=== PATIENT | female | born 1995 | race Caucasian/White ===

== ENCOUNTER 2016-04-17 09:33 | Emergency (ER) | payer MEDICAID ==
[~2016-04-17 09:33] MED LIST: AMOXICILLIN875 MG PO; ATARAX50 MG PO; BACTRIM DS 8001 TAB PO; BIRTH CONTROL PO; CIPRO 250MG TA250 MG PO; CIPRO 500MG TA500 MG PO; ED PERCOCE6 TAB/BOTT PO; ED ZOFRAN4 TAB/BOTT PO; FLOMAX0.4 MG PO; GOOD NEIGHBOR PHAR2% VG; HYDROCORT CREAM1% TP; IBU600 MG PO; KETOROLAC TROME10 MG PO; NORCO 325 MG-51 TAB PO; PERCOCET 325 MG1 TA2 PO; RECLIPSEN 0.151 TAB PO; ZOFRAN ODT8 MG PO; ZYRTEC10 MG PO
[2016-04-17 09:36] VITALS: BP 158/94
[2016-04-17] MEDS ORDERED: AMOXICILLIN875 MG PO (10:21)
[2016-04-17] MEDS ORDERED: TESSALON PERLE100 M1 PO (10:21)
[2016-04-17] MEDS ORDERED: TUSS PO (10:21)
== END 2016-04-17 10:26 | disposition home or self-care (01) ==
LOC: ED 09:33
DX: J30.9 Allergic rhinitis, unspecified (principal); R05 Cough; H92.03 Otalgia, bilateral; F17.210 Nicotine dependence, cigarettes, uncomplicated

== ENCOUNTER 2016-11-22 10:26 | Emergency (ER) | payer MEDICAID ==
[~2016-11-22] VITALS: Ht 172.7 cm; Wt 145.5 kg
[~2016-11-22 10:26] MED LIST changes: +TESSALON PERLE100 M1 PO; +TUSS PO
[2016-11-22] MEDS ORDERED: AMOXIL500 M1 PO (12:10)
[2016-11-22 12:23] VITALS: BP 128/75
== END 2016-11-22 12:24 | disposition home or self-care (01) ==
LOC: ED 10:26
DX: S93.602A Unspecified sprain of left foot, initial encounter (principal); X50.1XXA Overexertion from prolonged static or awkward postures, initial encounter; J03.90 Acute tonsillitis, unspecified; F17.210 Nicotine dependence, cigarettes, uncomplicated; Y92.480 Sidewalk as the place of occurrence of the external cause

== ENCOUNTER 2017-01-22 13:14 | Emergency (ER) | payer OTHER, MEDICAID ==
[~2017-01-22] VITALS: Ht 172.7 cm; Wt 145.5 kg
[~2017-01-22 13:14] MED LIST changes: +AMOXIL500 M1 PO
[2017-01-22] MEDS ORDERED: KETOROLAC10 MG PO (16:32)
[2017-01-22 16:41] VITALS: BP 96/50
== END 2017-01-22 16:52 | disposition home or self-care (01) ==
LOC: ED 13:14
DX: S20.212A Contusion of left front wall of thorax, initial encounter (principal); S30.0XXA Contusion of lower back and pelvis, initial encounter; S20.222A Contusion of left back wall of thorax, initial encounter; S20.221A Contusion of right back wall of thorax, initial encounter; V48.5XXA Car driver injured in noncollision transport accident in traffic accident, initial encounter; Y92.488 Other paved roadways as the place of occurrence of the external cause; R51 Headache; S20.312A Abrasion of left front wall of thorax, initial encounter
CPT/HCPCS: J1885

== ENCOUNTER 2017-07-10 11:00 | Outpatient (RCR) | payer MEDICAID ==
[~2017-07-10 11:00] MED LIST changes: +KETOROLAC10 MG PO
== END 2017-07-10 11:30 | disposition home or self-care (01) ==
LOC: PT 11:00
DX: M51.36 Other intervertebral disc degeneration, lumbar region (principal)

== ENCOUNTER 2018-02-18 21:48 | Emergency (ER) | payer MEDICAID ==
[~2018-02-18] VITALS: Ht 172.7 cm; Wt 154.5 kg
[2018-02-18 22:00] VITALS: BP 136/66
[2018-02-18] MEDS ORDERED: MIRENA52 MG IU (22:04)
[2018-02-18] MEDS ORDERED: VENLAFAXINE H37.5 M4 PO (22:04)
[2018-02-18] MEDS ORDERED: CETIRIZINE HCL10 MG PO (22:04)
== END 2018-02-18 22:40 | disposition home or self-care (01) ==
LOC: ED 21:48
DX: H10.9 Unspecified conjunctivitis (principal); F32.9 Major depressive disorder, single episode, unspecified

== ENCOUNTER → 2018-02-28 | Outpatient (CLI) | payer MEDICAID ==
[2018-02-18 22:00] VITALS: BP 136/66
[~2018-02-28] MED LIST changes: +CETIRIZINE HCL10 MG PO; +MIRENA52 MG IU; +VENLAFAXINE H37.5 M4 PO
== END ==
LOC: RAD 13:32
DX: M79.672 Pain in left foot (principal)

== ENCOUNTER → 2018-03-03 | Outpatient (CLI) | payer MEDICAID ==
[2018-02-18 22:00] VITALS: BP 136/66
[2018-03-03 11:36] LABS: EOS # 0.5 (0.04-0.40); HEMATOCRIT 41.3 % (37.0-47.0); HEMOGLOBIN 13.7 g/dL (12.5-16.0); LYMPH# 2.3 (1.50-4.00); MEAN CELL VOLUME 85 fl (78-100); MEAN CORPUSCULAR HEMOGLOBIN 28 pg (27-31); MEAN CORPUSCULAR HGB CONC 33 g/dL (33-37); MEAN PLATELET VOLUME 8.6 fl (7.4-10.4); MONO # 0.7 (0.20-0.80); NEU # 8.2 (1.40-6.50); PLATELET COUNT 304 K/mm3 (130-400); RED BLOOD COUNT 4.88 M/mm3 (4.10-5.30); RED CELL DISTRIBUTION WIDTH 13.2 % (11.5-14.5); WHITE BLOOD COUNT 11.7 K/mm3 (4.8-10.8)
[2018-03-03 12:29] LABS: CALCIUM 9.3 mg/dL (8.4-10.2); TOTAL BILIRUBIN 0.5 mg/dL (0.2-1.3); TOTAL PROTEIN 7.1 g/dL (6.3-8.2)
== END ==
LOC: LAB 11:08
PROVIDERS: Physician Assistant
DX: F41.9 Anxiety disorder, unspecified (principal); F32.9 Major depressive disorder, single episode, unspecified; M54.9 Dorsalgia, unspecified; E66.01 Morbid (severe) obesity due to excess calories; R53.83 Other fatigue; Z83.49 Family history of other endocrine, nutritional and metabolic diseases

== ENCOUNTER 2018-07-14 20:45 | Emergency (ER) | payer MEDICAID ==
[~2018-07-14] VITALS: Ht 172.7 cm; Wt 154.5 kg
[2018-07-14 21:10] VITALS: BP 165/82
[2018-07-14] MEDS ORDERED: BACTRIM DS TAB1 EACH PO (21:59)
== END 2018-07-14 22:06 | disposition home or self-care (01) ==
LOC: ED 20:45
DX: L02.412 Cutaneous abscess of left axilla (principal); F32.9 Major depressive disorder, single episode, unspecified; F17.210 Nicotine dependence, cigarettes, uncomplicated; Z87.442 Personal history of urinary calculi; Z90.89 Acquired absence of other organs

== ENCOUNTER → 2018-08-25 | Outpatient (CLI) | payer MEDICAID ==
[~2018-08-25] MED LIST changes: +BACTRIM DS TAB1 EACH PO
[2018-08-25 15:53] LABS: TOTAL PROTEIN 7.1 g/dL (6.4-8.3)
[2018-08-25 15:55] LABS: TOTAL BILIRUBIN 0.3 mg/dL (0.2-1.2)
[2018-08-25 16:02] LABS: ALBUMIN 3.6 g/dL (3.5-5.0); CALCIUM 8.8 mg/dL (8.3-10.5); POTASSIUM 3.8 mmol/L (3.5-5.1)
== END ==
LOC: LAB 15:13
PROVIDERS: Nurse Practitioner
DX: N92.6 Irregular menstruation, unspecified (principal); R60.0 Localized edema; R73.9 Hyperglycemia, unspecified

== ENCOUNTER → 2018-09-12 | Outpatient (CLI) | payer MEDICAID | LOC: LAB 08:37 | DX: N91.2 Amenorrhea, unspecified (principal); N92.6 Irregular menstruation, unspecified ==

== ENCOUNTER → 2019-10-19 | Outpatient (CLI) | payer MEDICAID ==
[2018-11-09 23:26] VITALS: BP 145/87
[~2019-10-19] MED LIST changes: +CYCLOBENZAPRINE10 M1 PO
== END ==
LOC: LAB 11:44
DX: M79.672 Pain in left foot (principal)

== ENCOUNTER → 2019-11-29 | Day surgery (SDC) | payer MEDICAID ==
[2018-11-09 23:26] VITALS: BP 145/87
== END ==
LOC: MSO 10:08
DX: S31.103A Unspecified open wound of abdominal wall, right lower quadrant without penetration into peritoneal cavity, initial encounter (principal); F32.9 Major depressive disorder, single episode, unspecified; F41.9 Anxiety disorder, unspecified; Z80.6 Family history of leukemia; Z83.3 Family history of diabetes mellitus; Z79.84 Long term (current) use of oral hypoglycemic drugs

== ENCOUNTER → 2020-02-11 | Outpatient (CLI) | payer MEDICAID ==
[2018-11-09 23:26] VITALS: BP 145/87
[2020-02-11 09:59] LABS: EOS # 0.2 (0.04-0.40); EOS % 1.6 % (1.0-5.0); HEMATOCRIT 39.5 % (37.0-47.0); HEMOGLOBIN 12.2 g/dL (12.5-16.0); LYMPH# 2.7 (1.50-4.00); MEAN CELL VOLUME 80 fl (78-100); MEAN CORPUSCULAR HEMOGLOBIN 25 pg (27-31); MEAN CORPUSCULAR HGB CONC 31 g/dL (33-37); MONO # 0.6 (0.20-0.80); NEU # 8.2 (1.40-6.50); PLATELET COUNT 344 K/mm3 (130-400); RED BLOOD COUNT 4.96 M/mm3 (4.10-5.30); WHITE BLOOD COUNT 11.8 K/mm3 (4.8-10.8)
[2020-02-11 11:01] LABS: ALBUMIN 4.1 g/dL (3.5-5.0); POTASSIUM 3.8 mmol/L (3.5-5.1)
[2020-02-11 11:03] LABS: CALCIUM 9.1 mg/dL (8.3-10.5)
[2020-02-11 11:06] LABS: TOTAL BILIRUBIN 0.4 mg/dL (0.2-1.2)
== END ==
LOC: LAB 09:35
PROVIDERS: Physician Assistant
DX: O24.419 Gestational diabetes mellitus in pregnancy, unspecified control (principal)

== ENCOUNTER → 2020-10-03 | Outpatient (CLI) | payer BC ==
[2020-10-03 10:36] LABS: BASO # 0.01 (0.02-0.10); EOS # 0.13 (0.04-0.40); EOS % 1.8 % (1.0-5.0); HEMATOCRIT 38.2 % (37.0-47.0); HEMOGLOBIN 11.9 g/dL (12.5-16.0); LYMPH# 2.03 (1.50-4.00); MEAN CELL VOLUME 85 fl (78-100); MEAN CORPUSCULAR HEMOGLOBIN 26 pg (27-31); MEAN CORPUSCULAR HGB CONC 31 g/dL (33-37); MEAN PLATELET VOLUME 8.3 fl (7.4-10.4); MONO # 0.46 (0.20-0.80); NEU # 4.53 (1.40-6.50); PLATELET COUNT 248 K/mm3 (130-400); RED BLOOD COUNT 4.52 M/mm3 (4.10-5.30); WHITE BLOOD COUNT 7.2 K/mm3 (4.8-10.8)
[2020-10-03 11:06] LABS: ALBUMIN 3.9 g/dL (3.5-5.0); POTASSIUM 4.3 mmol/L (3.5-5.1)
[2020-10-03 11:09] LABS: TOTAL PROTEIN 7.4 g/dL (6.4-8.3)
[2020-10-03 11:11] LABS: TOTAL BILIRUBIN 0.5 mg/dL (0.2-1.2)
== END ==
LOC: RAD 10:17
PROVIDERS: Nurse Practitioner
DX: R11.0 Nausea (principal); R19.7 Diarrhea, unspecified

== ENCOUNTER → 2021-08-02 | Outpatient (CLI) | payer MEDICAID ==
[2021-08-02 17:08] LABS: BASO # 0.02 K/mm3 (0.02-0.10); EOS # 0.19 K/mm3 (0.04-0.40); EOS % 2.4 % (1.0-5.0); HEMOGLOBIN 12.7 g/dL (12.5-16.0); LYMPH# 1.73 K/mm3 (1.50-4.00); MEAN CELL VOLUME 83 fl (78-100); MEAN CORPUSCULAR HEMOGLOBIN 27 pg (27-31); MEAN CORPUSCULAR HGB CONC 33 g/dL (33-37); MEAN PLATELET VOLUME 8.5 fl (7.4-10.4); MONO # 0.49 K/mm3 (0.20-0.80); NEU # 5.39 K/mm3 (1.40-6.50); PLATELET COUNT 235 K/mm3 (130-400); RED CELL DISTRIBUTION WIDTH 13.9 % (11.5-14.5); WHITE BLOOD COUNT 7.8 K/mm3 (4.8-10.8)
[2021-08-02 17:14] LABS: ALBUMIN 3.7 g/dL (3.5-5.0)
[2021-08-02 17:15] LABS: POTASSIUM 3.7 mmol/L (3.5-5.1)
[2021-08-02 17:16] LABS: CALCIUM 8.7 mg/dL (8.3-10.5)
[2021-08-02 17:17] LABS: TOTAL PROTEIN 7.3 g/dL (6.4-8.3)
[2021-08-02 17:19] LABS: TOTAL BILIRUBIN 0.3 mg/dL (0.2-1.2)
== END ==
LOC: LAB 16:39
PROVIDERS: Physician Assistant
DX: Z13.29 Encounter for screening for other suspected endocrine disorder (principal); Z13.220 Encounter for screening for lipoid disorders; K90.9 Intestinal malabsorption, unspecified; R63.1 Polydipsia; R53.83 Other fatigue; R11.0 Nausea; Z86.32 Personal history of gestational diabetes

== ENCOUNTER 2021-09-24 20:24 | Emergency (ER) | payer MEDICAID ==
[~2021-09-24] VITALS: Ht 172.7 cm; Wt 152.2 kg
[2021-09-24 20:33] VITALS: BP 147/93
[2021-09-24] MEDS ORDERED: ULTRAM50 M1 PO (20:47)
[2021-09-24] MEDS ORDERED: PROVENTIL0.09 MG/A1 IH (20:47)
[2021-09-24 21:05] LABS: ALBUMIN 3.7 g/dL (3.5-5.0); BASO # 0.02 K/mm3 (0.02-0.10); EOS # 0.08 K/mm3 (0.04-0.40); EOS % 1.3 % (1.0-5.0); HEMATOCRIT 37.7 % (37.0-47.0); HEMOGLOBIN 12.2 g/dL (12.5-16.0); LYMPH# 1.22 K/mm3 (1.50-4.00); MEAN CELL VOLUME 84 fl (78-100); MEAN CORPUSCULAR HEMOGLOBIN 27 pg (27-31); MEAN CORPUSCULAR HGB CONC 32 g/dL (33-37); MEAN PLATELET VOLUME 8.7 fl (7.4-10.4); MONO # 0.53 K/mm3 (0.20-0.80); NEU # 4.07 K/mm3 (1.40-6.50); PLATELET COUNT 220 K/mm3 (130-400); POTASSIUM 3.5 mmol/L (3.5-5.1); RED BLOOD COUNT 4.48 M/mm3 (4.10-5.30); RED CELL DISTRIBUTION WIDTH 13.5 % (11.5-14.5); WHITE BLOOD COUNT 5.9 K/mm3 (4.8-10.8)
[2021-09-24 21:06] LABS: CALCIUM 8.7 mg/dL (8.3-10.5)
[2021-09-24 21:07] LABS: TOTAL PROTEIN 7.3 g/dL (6.4-8.3)
[2021-09-24 21:09] LABS: TOTAL BILIRUBIN 0.5 mg/dL (0.2-1.2)
== END 2021-09-24 21:59 | disposition home or self-care (01) ==
LOC: ED 20:24
PROVIDERS: Physician Assistant
DX: U07.1 COVID-19 (principal); Z28.310 Unvaccinated for COVID-19; Z87.09 Personal history of other diseases of the respiratory system; Z87.891 Personal history of nicotine dependence
CPT/HCPCS: J1885

== ENCOUNTER 2022-02-25 14:20 | Emergency (ER) | payer MEDICAID ==
[~2022-02-25] VITALS: Ht 172.7 cm; Wt 150.8 kg
[~2022-02-25 14:20] MED LIST changes: +PROVENTIL0.09 MG/A1 IH; +ULTRAM50 M1 PO
[2022-02-25] MEDS ORDERED: PHENTERMINE H37.5 M3 PO (14:32)
[2022-02-25 14:41] VITALS: BP 134/74
== END 2022-02-25 15:41 | disposition home or self-care (01) ==
LOC: ED 14:20
DX: S63.601A Unspecified sprain of right thumb, initial encounter (principal); Z28.310 Unvaccinated for COVID-19; W22.03XA Walked into furniture, initial encounter
CPT/HCPCS: Q9967

== ENCOUNTER 2023-08-13 02:24 | Emergency (ER) | payer OTHER, MEDICAID ==
[~2023-08-13 02:24] MED LIST changes: +PHENTERMINE H37.5 M3 PO
[2023-08-13] MEDS ORDERED: Ketorolac 30 MG/ML VIAL IM ONE (03:00)
[2023-08-13] MEDS ORDERED: Cyclobenzaprine 10 MG TAB PO ONE (03:00)
[2023-08-13 04:02] VITALS: BP 131/96
== END 2023-08-13 04:03 | disposition short-term general hospital (02) ==
LOC: ED 02:24
DX: M40.56 Lordosis, unspecified, lumbar region (principal)
CPT/HCPCS: J1885

== ENCOUNTER → 2023-10-17 | Outpatient (CLI) | payer OTHER ==
[2023-10-17 08:06] LABS: BASO # 0.02 K/mm3 (0.02-0.10); EOS # 0.14 K/mm3 (0.04-0.40); EOS % 1.6 % (1.0-5.0); HEMATOCRIT 38.5 % (37.0-47.0); HEMOGLOBIN 12.4 g/dL (12.5-16.0); LYMPH# 2.13 K/mm3 (1.50-4.00); MEAN CELL VOLUME 86 fl (78-100); MEAN CORPUSCULAR HEMOGLOBIN 28 pg (27-31); MEAN CORPUSCULAR HGB CONC 32 g/dL (33-37); MEAN PLATELET VOLUME 8.1 fl (7.4-10.4); MONO # 0.41 K/mm3 (0.20-0.80); NEU # 5.99 K/mm3 (1.40-6.50); PLATELET COUNT 239 K/mm3 (130-400); RED CELL DISTRIBUTION WIDTH 13.3 % (11.5-14.5); WHITE BLOOD COUNT 8.7 K/mm3 (4.8-10.8)
[2023-10-17 08:16] LABS: ALBUMIN 3.7 g/dL (3.5-5.0)
[2023-10-17 08:17] LABS: CALCIUM 9.4 mg/dL (8.3-10.5)
[2023-10-17 08:18] LABS: TOTAL PROTEIN 7.2 g/dL (6.4-8.3)
[2023-10-17 08:20] LABS: TOTAL BILIRUBIN 0.3 mg/dL (0.2-1.2)
== END ==
LOC: LAB 07:45
PROVIDERS: Physician Assistant
DX: Z12.39 Encounter for other screening for malignant neoplasm of breast (principal); Z13.220 Encounter for screening for lipoid disorders; R73.9 Hyperglycemia, unspecified; K90.9 Intestinal malabsorption, unspecified; M25.561 Pain in right knee

== ENCOUNTER 2023-11-11 14:15 | Outpatient (RCR) | payer OTHER ==
[2024-01-01] MEDS ORDERED: FLOMAX0.4 MG PO (17:26)
== END 2023-11-24 | disposition home or self-care (01) ==
LOC: PT
DX: M25.561 Pain in right knee (principal)

== ENCOUNTER 2023-11-26 08:00 | Outpatient (RCR) | payer OTHER ==
[2024-01-01] MEDS ORDERED: FLOMAX0.4 MG PO (17:26)
== END 2023-12-25 | disposition home or self-care (01) ==
LOC: PT
DX: M25.561 Pain in right knee (principal)

== ENCOUNTER → 2024-03-02 | Outpatient (CLI) | payer OTHER | LOC: RAD 15:11 | DX: M25.561 Pain in right knee (principal) ==